=== PATIENT | male | born 1970 | race Two or more races ===

== ENCOUNTER 2020-02-13 06:36 | Day surgery (SDC) | payer OTHER ==
[2020-02-13] MEDS ORDERED: PERCOCET 5-3251 EACH PO (08:47)
== END 2020-02-13 11:25 | disposition home or self-care (01) ==
LOC: CIR.AMB 06:36
PROVIDERS: ATTEND Surgery
DX: C20 Malignant neoplasm of rectum (principal); Z20.828 Contact with and (suspected) exposure to other viral communicable diseases
CPT/HCPCS: 36561; C1751

== ENCOUNTER 2020-06-07 07:18 | Day surgery (SDC) | payer OTHER ==
[~2020-06-07 07:18] MED LIST: PERCOCET 5-3251 EACH PO
== END 2020-06-07 11:10 | disposition home or self-care (01) ==
LOC: AMB-ENDOS 07:18
PROVIDERS: ATTEND Surgery
DX: D12.8 Benign neoplasm of rectum (principal); Z20.822 Contact with and (suspected) exposure to COVID-19

== ENCOUNTER 2021-06-10 08:18 | Day surgery (SDC) | payer OTHER ==
[~2021-06-10 08:18] MED LIST changes: +GABAPENTIN100 M2 PO
[2021-06-10] MEDS ORDERED: ULTRACET PO (10:20)
== END 2021-06-10 12:25 | disposition home or self-care (01) ==
LOC: CIR.AMB 08:18
PROVIDERS: ATTEND Surgery
DX: C20 Malignant neoplasm of rectum (principal); Z20.822 Contact with and (suspected) exposure to COVID-19